=== PATIENT | male | born 1990 ===

== ENCOUNTER 2019-05-02 13:17 | Emergency (ER) | payer MEDICAID ==
[~2019-05-02] VITALS: Ht 162.6 cm; Wt 49.9 kg
[2019-05-02 17:12] VITALS: BP 112/80
== END 2019-05-02 17:14 | disposition home or self-care (01) ==
LOC: ER 13:17
DX: Z48.00 Encounter for change or removal of nonsurgical wound dressing (principal); Z86.14 Personal history of Methicillin resistant Staphylococcus aureus infection